=== PATIENT | male | born 1955 | race Caucasian/White ===

== ENCOUNTER 2017-10-11 19:04 | Inpatient (IN) | payer OTHER ==
[2017-10-11] MEDS ORDERED: morphine 4 MG/ML VIAL IV (19:44)
[2017-10-11] MEDS: ONDANSETRON 4 MG INJ IV (20:11)
[2017-10-11] MEDS: KETOROLAC 30 MG INJ IV (20:11)
[2017-10-11] MEDS: SODIUM CHLORIDE 0.9% 1L BAG IV* (20:12)
[2017-10-11 20:13] LABS: ADD MAN DIFF? NO
[2017-10-11 20:27] LABS: BASOPHILS % 0.2 % (0.0-2.0); EOSINOPHILS # 0.2 10^3/ul (0.0-0.5); HEMATOCRIT 31.4 % (42.0-52.0); HEMOGLOBIN 10.5 g/dl (14.0-18.0); LYMPHOCYTES # 0.8 10^3/ul (0.8-2.9); LYMPHOCYTES % 14.1 % (15.0-51.0); MEAN CORPUSCULAR HEMOGLOBIN 33.3 pg (29.0-33.0); MEAN CORPUSCULAR HGB CONC 33.4 g/dl (32.0-37.0); MEAN CORPUSCULAR VOLUME 99.7 fl (82.0-101.0); MEAN PLATELET VOLUME 10.9 fl (7.4-10.4); MONOCYTE # 0.4 10^3/ul (0.3-0.9); MONOCYTES % 7.6 % (0.0-11.0); NEUTROPHIL # 4.2 10^3/ul (1.6-7.5); NEUTROPHILS % 74.7 % (39.0-77.0); PLATELET COUNT 172 10^3/UL (140-415); RED BLOOD COUNT 3.15 10^6/ul (4.70-6.10); RED CELL DISTRIBUTION WIDTH 12.7 % (11.5-14.5)
[2017-10-11 20:27] LABS: WHITE BLOOD COUNT 5.7 10^3/ul (4.8-10.8)
[2017-10-11 20:36] LABS: INR 1.09; PROTIME 14.2 Sec (11.9-14.9); PT RATIO 1.1
[2017-10-11 20:37] LABS: LACTIC ACID 1.7 mmol/L (0.5-2.0)
[2017-10-11 20:37] LABS: PARTIAL THROMBOPLASTIN TIME 30.3 Sec (25.0-35.0)
[2017-10-11 20:39] LABS: ALANINE AMINOTRANSFERASE 14 IU/L (13-69); ALBUMIN 3.6 g/dl (3.3-4.9); ALBUMIN/GLOBULIN RATIO 1.12; ALKALINE PHOSPHATASE 55 IU/L (42-121); ANION GAP 10 (8-16); ASPARTATE AMINO TRANSFERASE 15 IU/L (15-46); BILIRUBIN,INDIRECT 0.7 mg/dl (0-1.1); BILIRUBIN,TOTAL 0.7 mg/dl (0.2-1.3); BLOOD UREA NITROGEN 15 mg/dl (7-20); CALCIUM 9.1 mg/dl (8.4-10.2); CARBON DIOXIDE 31 mmol/L (21-31); CHLORIDE 104 mmol/L (97-110); GLUCOSE 179 mg/dl (70-220); POTASSIUM 3.3 mmol/L (3.5-5.1); SODIUM 142 mmol/L (135-144); TOTAL PROTEIN 6.8 g/dl (6.1-8.1)
[2017-10-11 20:48] LABS: ADD UMIC YES; UR ASCORBIC ACID NEGATIVE (NEGATIVE); UR BILIRUBIN (Dip) NEGATIVE (NEGATIVE); UR BLOOD (Dip) 1+ mg/dL (NEGATIVE); UR CLARITY CLEAR (CLEAR); UR COLOR YELLOW (YELLOW); UR GLUCOSE (Dip) NEGATIVE (NEGATIVE); UR KETONES (Dip) NEGATIVE (NEGATIVE); UR LEUKOCYTE ESTERASE (Dip) NEGATIVE Leu/ul (NEGATIVE); UR NITRITE (Dip) NEGATIVE (NEGATIVE); UR RBC 31 /HPF (0-5); UR SPECIFIC GRAVITY (Dip) 1.014 (1.003-1.030); UR TOTAL PROTEIN (Dip) NEGATIVE (NEGATIVE); UR UROBILINOGEN (Dip) 2+ mg/dL (NEGATIVE); UR WBC 9 /HPF (0-5)
[2017-10-11 20:57] LABS: TROPONIN-I < 0.010 ng/ml (0.000-0.120)
[2017-10-11] MEDS: CEFTRIAXONE 1 GM/50 ML (PMX) 50 ML IVPB (22:22)
[2017-10-11 22:40] LABS: LACTIC ACID 1.4 mmol/L (0.5-2.0)
[2017-10-11] MEDS ORDERED: ACETAMINOPHEN 325 MG TAB PO (23:00)
[2017-10-11] MEDS ORDERED: ONDANSETRON 4 MG INJ IV (23:00)
[2017-10-12] MEDS: LORAZEPAM 2 MG INJ IV (00:55)
[2017-10-12] MEDS ORDERED: ONDANSETRON 4 MG INJ IV (04:30)
[2017-10-12] MEDS ORDERED: ACETAMINOPHEN 325 MG TAB PO (04:30)
[2017-10-12] MEDS ORDERED: PENDING SANTYL ORDER FOR WOUND CARE XX (04:30)
[2017-10-12] MEDS: LEVOTHYROXINE 50 MCG TAB PO (05:07)
[2017-10-12] MEDS: SOD CHLORIDE 0.45% 1,000 ML IV ×2 (05:07→18:58)
[2017-10-12] MEDS: RILUZOLE 50 MG TAB PO ×2 (09:00→20:55)
[2017-10-12] MEDS: LORATADINE 10 MG TAB PO (09:03)
[2017-10-12] MEDS: CEFTRIAXONE 1 GM INJ IM (09:03)
[2017-10-12] MEDS: CHOLECALCIFEROL 2,000 UNIT CAP PO (09:04)
[2017-10-12] MEDS: SENNA TAB PO ×2 (09:04→20:55)
[2017-10-12] MEDS: LOSARTAN 50 MG TAB PO (09:04)
[2017-10-12] MEDS: CILOSTAZOL 100 MG TAB PO ×2 (09:05→20:55)
[2017-10-12] MEDS: ENOXAPARIN 40 MG/0.4 ML SYG SC (09:08)
[2017-10-12] MEDS: BALSAM PERU/CASTOR OIL 60 GM TUBE TOP ×2 (11:42→20:56)
[2017-10-12] MEDS: ERTAPENEM SODIUM 1 GM in SOD CHLORIDE 0.9% 100 ML IVPB (16:01)
[2017-10-12] MEDS: TAMSULOSIN (SR) 0.4 MG CAP PO (20:55)
[2017-10-12] MEDS: BACLOFEN 10 MG TAB NGT (20:55)
[2017-10-12] MEDS: HYDROCODONE/APAP (5/325) TAB PO (21:04)
[2017-10-13] MEDS: HYDROCODONE/APAP (5/325) TAB PO ×4 (01:38→22:25)
[2017-10-13 05:59] LABS: ADD MAN DIFF? NO; BASOPHILS % 0.4 % (0.0-2.0); EOSINOPHILS # 0.1 10^3/ul (0.0-0.5); EOSINOPHILS % 3.1 % (0.0-7.0); HEMATOCRIT 26.9 % (42.0-52.0); HEMOGLOBIN 9.1 g/dl (14.0-18.0); LYMPHOCYTES # 1.2 10^3/ul (0.8-2.9); LYMPHOCYTES % 26.2 % (15.0-51.0); MEAN CORPUSCULAR HEMOGLOBIN 33.2 pg (29.0-33.0); MEAN CORPUSCULAR HGB CONC 33.8 g/dl (32.0-37.0); MEAN CORPUSCULAR VOLUME 98.2 fl (82.0-101.0); MEAN PLATELET VOLUME 10.5 fl (7.4-10.4); MONOCYTE # 0.4 10^3/ul (0.3-0.9); MONOCYTES % 7.6 % (0.0-11.0); NEUTROPHIL # 2.9 10^3/ul (1.6-7.5); NEUTROPHILS % 62.5 % (39.0-77.0); PLATELET COUNT 181 10^3/UL (140-415); RED BLOOD COUNT 2.74 10^6/ul (4.70-6.10); RED CELL DISTRIBUTION WIDTH 12.2 % (11.5-14.5)
[2017-10-13 05:59] LABS: WHITE BLOOD COUNT 4.6 10^3/ul (4.8-10.8)
[2017-10-13] MEDS: LEVOTHYROXINE 50 MCG TAB PO (06:11)
[2017-10-13 06:39] LABS: ANION GAP 7 (8-16); BLOOD UREA NITROGEN 9 mg/dl (7-20); CALCIUM 8.6 mg/dl (8.4-10.2); CARBON DIOXIDE 30 mmol/L (21-31); CHLORIDE 103 mmol/L (97-110); CREATININE 0.47 mg/dl (0.61-1.24); GLUCOSE 95 mg/dl (70-220); POTASSIUM 3.3 mmol/L (3.5-5.1); SODIUM 137 mmol/L (135-144)
[2017-10-13] MEDS: CEFTRIAXONE 1 GM/50 ML (PMX) 50 ML IVPB (08:18)
[2017-10-13] MEDS: LOSARTAN 50 MG TAB PO (08:18)
[2017-10-13] MEDS: CILOSTAZOL 100 MG TAB PO ×2 (08:18→20:13)
[2017-10-13] MEDS: CHOLECALCIFEROL 2,000 UNIT CAP PO (08:19)
[2017-10-13] MEDS: ENOXAPARIN 40 MG/0.4 ML SYG SC (08:19)
[2017-10-13] MEDS: SENNA TAB PO ×2 (08:19→20:13)
[2017-10-13] MEDS: LORATADINE 10 MG TAB PO (08:19)
[2017-10-13] MEDS: BALSAM PERU/CASTOR OIL 60 GM TUBE TOP ×2 (08:21→20:14)
[2017-10-13] MEDS: RILUZOLE 50 MG TAB PO ×2 (08:23→20:13)
[2017-10-13] MEDS: SOD CHLORIDE 0.45% 1,000 ML IV ×2 (08:24→23:43)
[2017-10-13] MEDS ORDERED: CEFTRIAXONE 1 GM INJ IVPB (09:00)
[2017-10-13] MEDS: POTASSIUM CHLORIDE 20 MEQ POWDER FOR ORAL SOLN PO (17:45)
[2017-10-13] MEDS: BACLOFEN 10 MG TAB PO (20:13)
[2017-10-13] MEDS: TAMSULOSIN (SR) 0.4 MG CAP PO (20:17)
[2017-10-13] MEDS: ZOLPIDEM 5 MG TAB PO (22:57)
[2017-10-14] MEDS: LEVOTHYROXINE 50 MCG TAB PO (05:33)
[2017-10-14] MEDS: LORATADINE 10 MG TAB PO (09:51)
[2017-10-14] MEDS: RILUZOLE 50 MG TAB PO ×2 (09:51→20:44)
[2017-10-14] MEDS: CHOLECALCIFEROL 2,000 UNIT CAP PO (09:52)
[2017-10-14] MEDS: SENNA TAB PO ×2 (09:53→20:47)
[2017-10-14] MEDS: LOSARTAN 50 MG TAB PO (09:53)
[2017-10-14] MEDS: BALSAM PERU/CASTOR OIL 60 GM TUBE TOP ×2 (09:53→21:00)
[2017-10-14] MEDS: ENOXAPARIN 40 MG/0.4 ML SYG SC (09:54)
[2017-10-14] MEDS: SOD CHLORIDE 0.45% 1,000 ML IV (12:49)
[2017-10-14] MEDS: CILOSTAZOL 100 MG TAB PO ×2 (12:49→20:45)
[2017-10-14] MEDS: NA PHOSPHATE/BIPHOS 133 ML ENEMA PR (16:51)
[2017-10-14] MEDS: POTASSIUM CHLORIDE 100 ML IVPB ×2 (16:51→19:05)
[2017-10-14] MEDS: HYDROCODONE/APAP (5/325) TAB PO (20:45)
[2017-10-14] MEDS: BACLOFEN 10 MG TAB PO (20:45)
[2017-10-14] MEDS: TAMSULOSIN (SR) 0.4 MG CAP PO (20:47)
[2017-10-15] MEDS: BALSAM PERU/CASTOR OIL 60 GM TUBE TOP ×3 (03:27→20:22)
[2017-10-15] MEDS: SOD CHLORIDE 0.45% 1,000 ML IV ×4 (04:00→23:21)
[2017-10-15] MEDS: HYDROCODONE/APAP (5/325) TAB PO ×2 (05:00→23:24)
[2017-10-15] MEDS: LEVOTHYROXINE 50 MCG TAB PO (05:02)
[2017-10-15] MEDS: LORATADINE 10 MG TAB PO (09:46)
[2017-10-15] MEDS: SENNA TAB PO ×2 (09:46→20:21)
[2017-10-15] MEDS: LOSARTAN 50 MG TAB PO (09:47)
[2017-10-15] MEDS: CILOSTAZOL 100 MG TAB PO ×2 (09:47→20:21)
[2017-10-15] MEDS: CHOLECALCIFEROL 2,000 UNIT CAP PO (09:47)
[2017-10-15] MEDS: RILUZOLE 50 MG TAB PO ×2 (09:47→20:21)
[2017-10-15] MEDS: ENOXAPARIN 40 MG/0.4 ML SYG SC (09:48)
[2017-10-15 11:44] LABS: ADD MAN DIFF? NO
[2017-10-15 11:46] LABS: WHITE BLOOD COUNT 7.6 10^3/ul (4.8-10.8)
[2017-10-15 11:46] LABS: BASOPHILS % 0.3 % (0.0-2.0); EOSINOPHILS # 0.1 10^3/ul (0.0-0.5); EOSINOPHILS % 0.8 % (0.0-7.0); HEMATOCRIT 31.7 % (42.0-52.0); LYMPHOCYTES # 0.9 10^3/ul (0.8-2.9); LYMPHOCYTES % 12.4 % (15.0-51.0); MEAN CORPUSCULAR HEMOGLOBIN 33.6 pg (29.0-33.0); MEAN CORPUSCULAR HGB CONC 34.7 g/dl (32.0-37.0); MEAN CORPUSCULAR VOLUME 96.9 fl (82.0-101.0); MEAN PLATELET VOLUME 10.5 fl (7.4-10.4); MONOCYTE # 0.6 10^3/ul (0.3-0.9); MONOCYTES % 7.4 % (0.0-11.0); NEUTROPHILS % 78.7 % (39.0-77.0); PLATELET COUNT 230 10^3/UL (140-415); RED BLOOD COUNT 3.27 10^6/ul (4.70-6.10); RED CELL DISTRIBUTION WIDTH 12.4 % (11.5-14.5)
[2017-10-15 12:11] LABS: ANION GAP 12 (8-16); BLOOD UREA NITROGEN 13 mg/dl (7-20); CALCIUM 9.2 mg/dl (8.4-10.2); CARBON DIOXIDE 27 mmol/L (21-31); CHLORIDE 102 mmol/L (97-110); CREATININE 0.46 mg/dl (0.61-1.24); GLUCOSE 106 mg/dl (70-220); POTASSIUM 3.4 mmol/L (3.5-5.1); SODIUM 138 mmol/L (135-144)
[2017-10-15] MEDS: TAMSULOSIN (SR) 0.4 MG CAP PO (20:20)
[2017-10-15] MEDS: BACLOFEN 10 MG TAB PO (20:21)
[2017-10-16] MEDS: LEVOTHYROXINE 50 MCG TAB PO (05:44)
[2017-10-16 06:58] LABS: ANION GAP 8 (8-16); BLOOD UREA NITROGEN 16 mg/dl (7-20); CARBON DIOXIDE 27 mmol/L (21-31); CHLORIDE 105 mmol/L (97-110); CREATININE 0.46 mg/dl (0.61-1.24); GLUCOSE 89 mg/dl (70-220); POTASSIUM 3.4 mmol/L (3.5-5.1); SODIUM 137 mmol/L (135-144)
[2017-10-16] MEDS: CILOSTAZOL 100 MG TAB PO ×2 (09:55→21:30)
[2017-10-16] MEDS: BALSAM PERU/CASTOR OIL 60 GM TUBE TOP ×2 (09:56→21:31)
[2017-10-16] MEDS: SENNA TAB PO ×2 (09:56→21:00)
[2017-10-16] MEDS: RILUZOLE 50 MG TAB PO ×2 (09:56→21:30)
[2017-10-16] MEDS: LORATADINE 10 MG TAB PO (09:56)
[2017-10-16] MEDS: CHOLECALCIFEROL 2,000 UNIT CAP PO (09:56)
[2017-10-16] MEDS: ENOXAPARIN 40 MG/0.4 ML SYG SC (09:59)
[2017-10-16] MEDS: LOSARTAN 50 MG TAB PO (10:00)
[2017-10-16] MEDS: SOD CHLORIDE 0.45% 1,000 ML IV (16:49)
[2017-10-16] MEDS: POTASSIUM CHLORIDE 100 ML IVPB (18:42)
[2017-10-16] MEDS: BACLOFEN 10 MG TAB PO (21:30)
[2017-10-16] MEDS: HYDROCODONE/APAP (5/325) TAB PO (21:30)
[2017-10-16] MEDS: TAMSULOSIN (SR) 0.4 MG CAP PO (21:30)
[2017-10-17] MEDS: LEVOTHYROXINE 50 MCG TAB PO (05:55)
[2017-10-17 06:13] LABS: ADD MAN DIFF? NO
[2017-10-17 06:16] LABS: BASOPHILS % 0.3 % (0.0-2.0); EOSINOPHILS # 0.1 10^3/ul (0.0-0.5); EOSINOPHILS % 1.9 % (0.0-7.0); HEMATOCRIT 29.5 % (42.0-52.0); LYMPHOCYTES # 1.5 10^3/ul (0.8-2.9); LYMPHOCYTES % 25.3 % (15.0-51.0); MEAN CORPUSCULAR HEMOGLOBIN 33.1 pg (29.0-33.0); MEAN CORPUSCULAR HGB CONC 33.9 g/dl (32.0-37.0); MEAN CORPUSCULAR VOLUME 97.7 fl (82.0-101.0); MEAN PLATELET VOLUME 9.7 fl (7.4-10.4); MONOCYTE # 0.5 10^3/ul (0.3-0.9); NEUTROPHIL # 3.7 10^3/ul (1.6-7.5); NEUTROPHILS % 64.2 % (39.0-77.0); PLATELET COUNT 258 10^3/UL (140-415); RED BLOOD COUNT 3.02 10^6/ul (4.70-6.10); RED CELL DISTRIBUTION WIDTH 12.8 % (11.5-14.5)
[2017-10-17 06:16] LABS: WHITE BLOOD COUNT 5.7 10^3/ul (4.8-10.8)
[2017-10-17 06:52] LABS: ANION GAP 8 (8-16); BLOOD UREA NITROGEN 16 mg/dl (7-20); CALCIUM 9.1 mg/dl (8.4-10.2); CARBON DIOXIDE 29 mmol/L (21-31); CHLORIDE 106 mmol/L (97-110); CREATININE 0.45 mg/dl (0.61-1.24); GLUCOSE 90 mg/dl (70-220); POTASSIUM 3.8 mmol/L (3.5-5.1); SODIUM 139 mmol/L (135-144)
[2017-10-17] MEDS: LORATADINE 10 MG TAB PO (08:25)
[2017-10-17] MEDS: SENNA TAB PO ×2 (08:25→20:10)
[2017-10-17] MEDS: LOSARTAN 50 MG TAB PO (08:25)
[2017-10-17] MEDS: CILOSTAZOL 100 MG TAB PO ×2 (08:25→20:11)
[2017-10-17] MEDS: CHOLECALCIFEROL 1,000 UNIT TAB PO (08:26)
[2017-10-17] MEDS: RILUZOLE 50 MG TAB PO ×2 (08:26→20:11)
[2017-10-17] MEDS: ENOXAPARIN 40 MG/0.4 ML SYG SC (08:28)
[2017-10-17] MEDS: BALSAM PERU/CASTOR OIL 60 GM TUBE TOP ×2 (08:28→20:11)
[2017-10-17] MEDS: SOD CHLORIDE 0.45% 1,000 ML IV ×2 (12:25→18:34)
[2017-10-17] MEDS: GABAPENTIN 100 MG CAP PO ×2 (16:05→20:10)
[2017-10-17] MEDS: TAMSULOSIN (SR) 0.4 MG CAP PO (20:10)
[2017-10-17] MEDS: BACLOFEN 10 MG TAB PO (20:10)
[2017-10-18] MEDS: SOD CHLORIDE 0.45% 1,000 ML IV ×2 (03:30→16:43)
[2017-10-18] MEDS: LEVOTHYROXINE 50 MCG TAB PO ×2 (05:43→06:00)
[2017-10-18 06:58] LABS: ANION GAP 8 (8-16); BLOOD UREA NITROGEN 15 mg/dl (7-20); CALCIUM 9.2 mg/dl (8.4-10.2); CARBON DIOXIDE 26 mmol/L (21-31); CHLORIDE 107 mmol/L (97-110); CREATININE 0.43 mg/dl (0.61-1.24); GLUCOSE 85 mg/dl (70-220); POTASSIUM 3.8 mmol/L (3.5-5.1); SODIUM 137 mmol/L (135-144)
[2017-10-18] MEDS: GABAPENTIN 100 MG CAP PO ×3 (09:07→22:03)
[2017-10-18] MEDS: RILUZOLE 50 MG TAB PO ×2 (09:07→22:13)
[2017-10-18] MEDS: SENNA TAB PO ×2 (09:07→21:00)
[2017-10-18] MEDS: CHOLECALCIFEROL 1,000 UNIT TAB PO (09:07)
[2017-10-18] MEDS: LORATADINE 10 MG TAB PO (09:08)
[2017-10-18] MEDS: LOSARTAN 50 MG TAB PO (09:08)
[2017-10-18] MEDS: CILOSTAZOL 100 MG TAB PO ×2 (09:08→22:13)
[2017-10-18] MEDS: ENOXAPARIN 40 MG/0.4 ML SYG SC (09:09)
[2017-10-18] MEDS: BALSAM PERU/CASTOR OIL 60 GM TUBE TOP ×2 (09:18→21:00)
[2017-10-18] MEDS: HYDROCODONE/APAP (5/325) TAB PO ×2 (09:34→22:14)
[2017-10-18] MEDS: NA PHOSPHATE/BIPHOS 133 ML ENEMA PR (18:04)
[2017-10-18] MEDS: BACLOFEN 10 MG TAB PO (22:04)
[2017-10-18] MEDS: TAMSULOSIN (SR) 0.4 MG CAP PO (22:17)
[2017-10-19] MEDS: LEVOTHYROXINE 50 MCG TAB PO (06:00)
[2017-10-19] MEDS: SOD CHLORIDE 0.45% 1,000 ML IV ×3 (06:30→20:16)
[2017-10-19 07:04] LABS: ANION GAP 8 (8-16); BLOOD UREA NITROGEN 17 mg/dl (7-20); CALCIUM 9.1 mg/dl (8.4-10.2); CARBON DIOXIDE 26 mmol/L (21-31); CHLORIDE 106 mmol/L (97-110); CREATININE 0.51 mg/dl (0.61-1.24); GLUCOSE 85 mg/dl (70-220); POTASSIUM 3.8 mmol/L (3.5-5.1); SODIUM 136 mmol/L (135-144)
[2017-10-19] MEDS: BALSAM PERU/CASTOR OIL 60 GM TUBE TOP ×2 (08:49→20:10)
[2017-10-19] MEDS: LORATADINE 10 MG TAB PO (08:50)
[2017-10-19] MEDS: RILUZOLE 50 MG TAB PO ×2 (08:50→20:09)
[2017-10-19] MEDS: CILOSTAZOL 100 MG TAB PO ×2 (08:50→20:09)
[2017-10-19] MEDS: GABAPENTIN 100 MG CAP PO ×3 (08:50→20:10)
[2017-10-19] MEDS: SENNA TAB PO ×2 (08:51→20:09)
[2017-10-19] MEDS: CHOLECALCIFEROL 1,000 UNIT TAB PO (08:51)
[2017-10-19] MEDS: LOSARTAN 50 MG TAB PO (08:51)
[2017-10-19] MEDS: ENOXAPARIN 40 MG/0.4 ML SYG SC (09:00)
[2017-10-19] MEDS: BACLOFEN 10 MG TAB PO (20:10)
[2017-10-19] MEDS: TAMSULOSIN (SR) 0.4 MG CAP PO (20:10)
[2017-10-20] MEDS: LEVOTHYROXINE 50 MCG TAB PO (06:15)
[2017-10-20] MEDS: LOSARTAN 50 MG TAB PO (09:22)
[2017-10-20] MEDS: CILOSTAZOL 100 MG TAB PO ×2 (09:22→20:31)
[2017-10-20] MEDS: BALSAM PERU/CASTOR OIL 60 GM TUBE TOP ×2 (09:23→20:33)
[2017-10-20] MEDS: LORATADINE 10 MG TAB PO (09:23)
[2017-10-20] MEDS: RILUZOLE 50 MG TAB PO ×2 (09:23→20:31)
[2017-10-20] MEDS: SENNA TAB PO ×2 (09:23→20:33)
[2017-10-20] MEDS: CHOLECALCIFEROL 1,000 UNIT TAB PO (09:23)
[2017-10-20] MEDS: GABAPENTIN 100 MG CAP PO ×4 (09:23→20:32)
[2017-10-20] MEDS: ENOXAPARIN 40 MG/0.4 ML SYG SC (09:25)
[2017-10-20] MEDS: SOD CHLORIDE 0.45% 1,000 ML IV (11:09)
[2017-10-20] MEDS: HYDROCODONE/APAP (5/325) TAB PO (20:31)
[2017-10-20] MEDS: TAMSULOSIN (SR) 0.4 MG CAP PO (20:31)
[2017-10-20] MEDS: BACLOFEN 10 MG TAB PO (20:32)
[2017-10-21] MEDS: SOD CHLORIDE 0.45% 1,000 ML IV ×2 (03:56→23:53)
[2017-10-21] MEDS: LEVOTHYROXINE 50 MCG TAB PO (05:30)
[2017-10-21 05:37] LABS: ADD MAN DIFF? NO
[2017-10-21 05:42] LABS: WHITE BLOOD COUNT 4.4 10^3/ul (4.8-10.8)
[2017-10-21 05:42] LABS: BASOPHILS % 0.5 % (0.0-2.0); EOSINOPHILS # 0.1 10^3/ul (0.0-0.5); EOSINOPHILS % 2.5 % (0.0-7.0); HEMATOCRIT 29.2 % (42.0-52.0); HEMOGLOBIN 9.7 g/dl (14.0-18.0); LYMPHOCYTES # 1.5 10^3/ul (0.8-2.9); MEAN CORPUSCULAR HEMOGLOBIN 33.3 pg (29.0-33.0); MEAN CORPUSCULAR HGB CONC 33.2 g/dl (32.0-37.0); MEAN CORPUSCULAR VOLUME 100.3 fl (82.0-101.0); MEAN PLATELET VOLUME 9.8 fl (7.4-10.4); MONOCYTE # 0.4 10^3/ul (0.3-0.9); MONOCYTES % 8.4 % (0.0-11.0); NEUTROPHIL # 2.5 10^3/ul (1.6-7.5); NEUTROPHILS % 55.4 % (39.0-77.0); PLATELET COUNT 258 10^3/UL (140-415); RED BLOOD COUNT 2.91 10^6/ul (4.70-6.10); RED CELL DISTRIBUTION WIDTH 13.1 % (11.5-14.5)
[2017-10-21 06:06] LABS: ANION GAP 8 (8-16); BLOOD UREA NITROGEN 17 mg/dl (7-20); CALCIUM 8.8 mg/dl (8.4-10.2); CARBON DIOXIDE 27 mmol/L (21-31); CHLORIDE 106 mmol/L (97-110); CREATININE 0.44 mg/dl (0.61-1.24); GLUCOSE 86 mg/dl (70-220); POTASSIUM 3.8 mmol/L (3.5-5.1); SODIUM 137 mmol/L (135-144)
[2017-10-21] MEDS: BARIUM SULFATE 135 ML (E-Z HD) PO (07:42)
[2017-10-21] MEDS: CILOSTAZOL 100 MG TAB PO ×2 (09:20→20:16)
[2017-10-21] MEDS: CHOLECALCIFEROL 1,000 UNIT TAB PO (09:20)
[2017-10-21] MEDS: SENNA TAB PO ×2 (09:20→20:16)
[2017-10-21] MEDS: GABAPENTIN 100 MG CAP PO ×3 (09:20→20:16)
[2017-10-21] MEDS: RILUZOLE 50 MG TAB PO ×2 (09:21→20:16)
[2017-10-21] MEDS: LORATADINE 10 MG TAB PO (09:21)
[2017-10-21] MEDS: LOSARTAN 50 MG TAB PO (09:21)
[2017-10-21] MEDS: ENOXAPARIN 40 MG/0.4 ML SYG SC (09:23)
[2017-10-21] MEDS: BALSAM PERU/CASTOR OIL 60 GM TUBE TOP ×2 (09:24→20:16)
[2017-10-21] MEDS: BACLOFEN 10 MG TAB PO (20:15)
[2017-10-21] MEDS: TAMSULOSIN (SR) 0.4 MG CAP PO (20:16)
[2017-10-22] MEDS: LEVOTHYROXINE 50 MCG TAB PO (05:45)
[2017-10-22 08:12] LABS: ADD MAN DIFF? NO
[2017-10-22 08:50] LABS: EOSINOPHILS # 0.1 10^3/ul (0.0-0.5); EOSINOPHILS % 2.3 % (0.0-7.0); HEMATOCRIT 28.7 % (42.0-52.0); HEMOGLOBIN 9.6 g/dl (14.0-18.0); LYMPHOCYTES # 1.2 10^3/ul (0.8-2.9); LYMPHOCYTES % 29.8 % (15.0-51.0); MEAN CORPUSCULAR HEMOGLOBIN 33.3 pg (29.0-33.0); MEAN CORPUSCULAR HGB CONC 33.4 g/dl (32.0-37.0); MEAN CORPUSCULAR VOLUME 99.7 fl (82.0-101.0); MEAN PLATELET VOLUME 10.3 fl (7.4-10.4); MONOCYTE # 0.3 10^3/ul (0.3-0.9); MONOCYTES % 7.8 % (0.0-11.0); NEUTROPHIL # 2.4 10^3/ul (1.6-7.5); NEUTROPHILS % 58.8 % (39.0-77.0); PLATELET COUNT 254 10^3/UL (140-415); RED BLOOD COUNT 2.88 10^6/ul (4.70-6.10); RED CELL DISTRIBUTION WIDTH 13.2 % (11.5-14.5)
[2017-10-22] MEDS: GABAPENTIN 100 MG CAP PO ×2 (09:00→13:00)
[2017-10-22] MEDS: SENNA TAB PO (09:20)
[2017-10-22] MEDS: LORATADINE 10 MG TAB PO (09:21)
[2017-10-22] MEDS: CILOSTAZOL 100 MG TAB PO (09:21)
[2017-10-22] MEDS: LOSARTAN 50 MG TAB PO (09:21)
[2017-10-22] MEDS: CHOLECALCIFEROL 1,000 UNIT TAB PO (09:21)
[2017-10-22] MEDS: BALSAM PERU/CASTOR OIL 60 GM TUBE TOP (09:22)
[2017-10-22 09:23] LABS: ANION GAP 10 (8-16); BLOOD UREA NITROGEN 14 mg/dl (7-20); CALCIUM 9.3 mg/dl (8.4-10.2); CARBON DIOXIDE 27 mmol/L (21-31); CHLORIDE 105 mmol/L (97-110); CREATININE 0.43 mg/dl (0.61-1.24); GLUCOSE 83 mg/dl (70-220); SODIUM 138 mmol/L (135-144)
[2017-10-22] MEDS: ENOXAPARIN 40 MG/0.4 ML SYG SC (09:28)
[2017-10-22] MEDS: SOD CHLORIDE 0.45% 1,000 ML IV (14:11)
[2017-10-22] MEDS: RILUZOLE 50 MG TAB PO (14:11)
== END 2017-10-22 19:00 | DRG 689 ==
LOC: E/R 19:04 → MS2 22:39
DX: N10 Acute pyelonephritis (principal); E43 Unspecified severe protein-calorie malnutrition; Z68.1 Body mass index [BMI] 19.9 or less, adult; G12.21 Amyotrophic lateral sclerosis; N13.8 Other obstructive and reflux uropathy; N13.30 Unspecified hydronephrosis; R13.10 Dysphagia, unspecified; N31.8 Other neuromuscular dysfunction of bladder; I10 Essential (primary) hypertension; N40.1 Benign prostatic hyperplasia with lower urinary tract symptoms; R33.8 Other retention of urine; K80.20 Calculus of gallbladder without cholecystitis without obstruction; E87.6 Hypokalemia; R31.0 Gross hematuria; K59.00 Constipation, unspecified; F32.9 Major depressive disorder, single episode, unspecified; F41.9 Anxiety disorder, unspecified; Z74.01 Bed confinement status
CPT/HCPCS: 36415; 71045; 74176; 74230; 80048; 80053; 81001; 83605; 84443; 84484; 85025; 85610; 85730; 87040; 87081; 87086; 88104; 92526; 92610; 92611; 93005; 96365; 96366; 96375; 97110; 97163; 97530; 99285-25

== ENCOUNTER 2017-11-13 15:44 | Emergency (ER) | payer OTHER ==
[2017-11-13] MEDS: traMADol 50 MG TAB PO (16:35)
[2017-11-13 17:39] LABS: ADD UMIC YES; UR ASCORBIC ACID NEGATIVE (NEGATIVE); UR BACTERIA FEW /HPF (NONE SEEN); UR BILIRUBIN (Dip) NEGATIVE (NEGATIVE); UR BLOOD (Dip) 3+ mg/dL (NEGATIVE); UR CLARITY TURBID (CLEAR); UR COLOR YELLOW (YELLOW); UR GLUCOSE (Dip) NEGATIVE (NEGATIVE); UR KETONES (Dip) NEGATIVE (NEGATIVE); UR LEUKOCYTE ESTERASE (Dip) 3+ Leu/ul (NEGATIVE); UR MUCUS MANY /HPF (NONE SEEN); UR NITRITE (Dip) POSITIVE (NEGATIVE); UR RBC > 182 /HPF (0-5); UR SPECIFIC GRAVITY (Dip) 1.018 (1.003-1.030); UR TOTAL PROTEIN (Dip) 2+ mg/dl (NEGATIVE); UR UROBILINOGEN (Dip) 2+ mg/dL (NEGATIVE); UR WBC > 182 /HPF (0-5)
== END 2017-11-13 18:40 | disposition home or self-care (01) ==
LOC: FTE 15:44
DX: T83.511A Infection and inflammatory reaction due to indwelling urethral catheter, initial encounter (principal); I10 Essential (primary) hypertension; N30.90 Cystitis, unspecified without hematuria; Y73.2 Prosthetic and other implants, materials and accessory gastroenterology and urology devices associated with adverse incidents
CPT/HCPCS: 51702; 81001; 87086; 99283-25

== ENCOUNTER 2017-11-19 19:10 | Emergency (ER) | payer OTHER ==
[2017-11-19 20:15] LABS: ADD MAN DIFF? NO
[2017-11-19 20:19] LABS: WHITE BLOOD COUNT 6.3 10^3/ul (4.8-10.8)
[2017-11-19 20:19] LABS: BASOPHILS % 0.3 % (0.0-2.0); EOSINOPHILS # 0.1 10^3/ul (0.0-0.5); EOSINOPHILS % 1.1 % (0.0-7.0); HEMATOCRIT 35.4 % (42.0-52.0); HEMOGLOBIN 11.8 g/dl (14.0-18.0); LYMPHOCYTES # 0.9 10^3/ul (0.8-2.9); MEAN CORPUSCULAR HEMOGLOBIN 33.5 pg (29.0-33.0); MEAN CORPUSCULAR HGB CONC 33.3 g/dl (32.0-37.0); MEAN CORPUSCULAR VOLUME 100.6 fl (82.0-101.0); MONOCYTE # 0.4 10^3/ul (0.3-0.9); NEUTROPHIL # 4.8 10^3/ul (1.6-7.5); NEUTROPHILS % 76.4 % (39.0-77.0); PLATELET COUNT 210 10^3/UL (140-415); RED BLOOD COUNT 3.52 10^6/ul (4.70-6.10); RED CELL DISTRIBUTION WIDTH 12.5 % (11.5-14.5)
[2017-11-19 20:22] LABS: ADD UMIC YES; UR ASCORBIC ACID NEGATIVE (NEGATIVE); UR BACTERIA FEW /HPF (NONE SEEN); UR BILIRUBIN (Dip) NEGATIVE (NEGATIVE); UR BLOOD (Dip) 2+ mg/dL (NEGATIVE); UR CLARITY CLEAR (CLEAR); UR COLOR YELLOW (YELLOW); UR GLUCOSE (Dip) NEGATIVE (NEGATIVE); UR KETONES (Dip) NEGATIVE (NEGATIVE); UR LEUKOCYTE ESTERASE (Dip) 1+ Leu/ul (NEGATIVE); UR MUCUS FEW /HPF (NONE SEEN); UR NITRITE (Dip) NEGATIVE (NEGATIVE); UR RBC 28 /HPF (0-5); UR SPECIFIC GRAVITY (Dip) 1.016 (1.003-1.030); UR TOTAL PROTEIN (Dip) NEGATIVE (NEGATIVE); UR UROBILINOGEN (Dip) 1+ mg/dL (NEGATIVE); UR WBC 11 /HPF (0-5)
[2017-11-19] MEDS: ONDANSETRON 4 MG INJ IV (20:28)
[2017-11-19] MEDS: morphine 4 MG/ML VIAL IV (20:28)
[2017-11-19 20:37] LABS: ANION GAP 11 (8-16); BLOOD UREA NITROGEN 19 mg/dl (7-20); CALCIUM 9.3 mg/dl (8.4-10.2); CARBON DIOXIDE 26 mmol/L (21-31); CHLORIDE 105 mmol/L (97-110); CREATININE 0.48 mg/dl (0.61-1.24); GLUCOSE 92 mg/dl (70-220); POTASSIUM 4.4 mmol/L (3.5-5.1); SODIUM 138 mmol/L (135-144)
== END 2017-11-19 22:35 | disposition home or self-care (01) ==
LOC: E/R 19:10
DX: N30.90 Cystitis, unspecified without hematuria (principal); T83.511A Infection and inflammatory reaction due to indwelling urethral catheter, initial encounter; I10 Essential (primary) hypertension; Y73.8 Miscellaneous gastroenterology and urology devices associated with adverse incidents, not elsewhere classified
CPT/HCPCS: 36415; 80048; 81001; 85025; 87086; 96374; 96375; 99284-25

== ENCOUNTER 2017-11-20 19:31 | Emergency (ER) | payer MEDICARE, OTHER ==
[2017-11-20 23:04] LABS: ADD UMIC YES; UR ASCORBIC ACID NEGATIVE (NEGATIVE); UR BACTERIA FEW /HPF (NONE SEEN); UR BILIRUBIN (Dip) NEGATIVE (NEGATIVE); UR BLOOD (Dip) 1+ mg/dL (NEGATIVE); UR CLARITY CLOUDY (CLEAR); UR COLOR AMBER (YELLOW); UR GLUCOSE (Dip) NEGATIVE (NEGATIVE); UR KETONES (Dip) NEGATIVE (NEGATIVE); UR LEUKOCYTE ESTERASE (Dip) TRACE Leu/ul (NEGATIVE); UR MUCUS FEW /HPF (NONE SEEN); UR NITRITE (Dip) NEGATIVE (NEGATIVE); UR RBC 15 /HPF (0-5); UR SPECIFIC GRAVITY (Dip) 1.013 (1.003-1.030); UR TOTAL PROTEIN (Dip) 1+ mg/dl (NEGATIVE); UR UROBILINOGEN (Dip) 2+ mg/dL (NEGATIVE); UR WBC 8 /HPF (0-5)
[2017-11-20] MEDS: HYDROmorphONE 0.5 MG/0.5 ML SYG IM (23:25)
[2017-11-20] MEDS: LIDOCAINE 2% JELLY 5 ML TOP (23:25)
== END 2017-11-21 00:05 | disposition home or self-care (01) ==
LOC: E/R 11-21 00:05
DX: T83.098A Other mechanical complication of other urinary catheter, initial encounter (principal); I10 Essential (primary) hypertension; Y73.2 Prosthetic and other implants, materials and accessory gastroenterology and urology devices associated with adverse incidents
CPT/HCPCS: 51702; 81001; 96372; 99284-25

== ENCOUNTER 2017-11-25 14:37 | Emergency (ER) | payer MEDICARE, OTHER | END 2017-11-25 16:28 | disposition home or self-care (01) | LOC: E/R 14:37 | DX: T83.9XXA Unspecified complication of genitourinary prosthetic device, implant and graft, initial encounter (principal); N30.00 Acute cystitis without hematuria; E03.9 Hypothyroidism, unspecified; I10 Essential (primary) hypertension; Y73.2 Prosthetic and other implants, materials and accessory gastroenterology and urology devices associated with adverse incidents | CPT/HCPCS: 99283 ==

== ENCOUNTER 2017-12-08 18:15 | Emergency (ER) | payer MEDICARE, OTHER ==
[2017-12-08 21:52] LABS: ADD MAN DIFF? NO
[2017-12-08] MEDS: HYDROmorphONE 0.5 MG/0.5 ML SYG IV (21:53)
[2017-12-08] MEDS: SOD CHLORIDE 0.9% 1,000 ML IV (21:53)
[2017-12-08] MEDS: LIDOCAINE 2% 20 ML UROJET SYRINGE MM (21:53)
[2017-12-08 21:54] LABS: WHITE BLOOD COUNT 7.7 10^3/ul (4.8-10.8)
[2017-12-08 21:54] LABS: BASOPHILS % 0.4 % (0.0-2.0); EOSINOPHILS # 0.1 10^3/ul (0.0-0.5); EOSINOPHILS % 1.2 % (0.0-7.0); HEMATOCRIT 38.1 % (42.0-52.0); HEMOGLOBIN 12.7 g/dl (14.0-18.0); LYMPHOCYTES # 1.4 10^3/ul (0.8-2.9); LYMPHOCYTES % 18.1 % (15.0-51.0); MEAN CORPUSCULAR HGB CONC 33.3 g/dl (32.0-37.0); MEAN PLATELET VOLUME 11.4 fl (7.4-10.4); MONOCYTE # 0.5 10^3/ul (0.3-0.9); MONOCYTES % 6.6 % (0.0-11.0); NEUTROPHIL # 5.7 10^3/ul (1.6-7.5); NEUTROPHILS % 73.3 % (39.0-77.0); PLATELET COUNT 225 10^3/UL (140-415); RED BLOOD COUNT 3.85 10^6/ul (4.70-6.10); RED CELL DISTRIBUTION WIDTH 12.3 % (11.5-14.5)
[2017-12-08 22:24] LABS: ALANINE AMINOTRANSFERASE 21 IU/L (13-69); ALBUMIN 4.6 g/dl (3.3-4.9); ALBUMIN/GLOBULIN RATIO 1.43; ALKALINE PHOSPHATASE 43 IU/L (42-121); ANION GAP 15 (8-16); ASPARTATE AMINO TRANSFERASE 27 IU/L (15-46); BILIRUBIN,INDIRECT 0.9 mg/dl (0-1.1); BILIRUBIN,TOTAL 0.9 mg/dl (0.2-1.3); BLOOD UREA NITROGEN 22 mg/dl (7-20); CALCIUM 9.8 mg/dl (8.4-10.2); CARBON DIOXIDE 27 mmol/L (21-31); CHLORIDE 100 mmol/L (97-110); CREATININE 0.57 mg/dl (0.61-1.24); GLUCOSE 96 mg/dl (70-220); LIPASE 123 U/L (23-300); POTASSIUM 4.6 mmol/L (3.5-5.1); SODIUM 137 mmol/L (135-144); TOTAL PROTEIN 7.8 g/dl (6.1-8.1)
[2017-12-08] MEDS: NA PHOSPHATE/BIPHOS 133 ML ENEMA PR ×2 (23:10→23:43)
[2017-12-08 23:21] LABS: ADD UMIC YES; UR AMORPHOUS CRYSTAL FEW /HPF (NONE SEEN); UR ASCORBIC ACID NEGATIVE (NEGATIVE); UR BACTERIA FEW /HPF (NONE SEEN); UR BILIRUBIN (Dip) NEGATIVE (NEGATIVE); UR BLOOD (Dip) 3+ mg/dL (NEGATIVE); UR CLARITY CLOUDY (CLEAR); UR COLOR YELLOW (YELLOW); UR GLUCOSE (Dip) NEGATIVE (NEGATIVE); UR KETONES (Dip) NEGATIVE (NEGATIVE); UR LEUKOCYTE ESTERASE (Dip) 3+ Leu/ul (NEGATIVE); UR NITRITE (Dip) NEGATIVE (NEGATIVE); UR NONSQUAMOUS EPITHELIAL CELL 1 /HPF (NONE SEEN); UR RBC > 182 /HPF (0-5); UR SPECIFIC GRAVITY (Dip) 1.014 (1.003-1.030); UR TOTAL PROTEIN (Dip) 2+ mg/dl (NEGATIVE); UR UROBILINOGEN (Dip) NEGATIVE (NEGATIVE); UR WBC > 182 /HPF (0-5)
== END 2017-12-09 00:10 | disposition home or self-care (01) ==
LOC: E/R 12-09 00:10
DX: K59.00 Constipation, unspecified (principal); T83.511A Infection and inflammatory reaction due to indwelling urethral catheter, initial encounter; N39.0 Urinary tract infection, site not specified; E86.0 Dehydration; I10 Essential (primary) hypertension; E03.9 Hypothyroidism, unspecified; Y73.2 Prosthetic and other implants, materials and accessory gastroenterology and urology devices associated with adverse incidents
CPT/HCPCS: 36415; 74176; 80053; 81001; 83690; 85025; 87086; 96374; 99285-25

== ENCOUNTER 2018-04-26 15:51 | Emergency (ER) | payer SELFPAY, MEDICAID, MEDICARE | END 2018-04-26 16:54 | disposition left against medical advice (07) | LOC: E/R 15:51 | DX: Z53.21 Procedure and treatment not carried out due to patient leaving prior to being seen by health care provider (principal) ==